=== PATIENT | male | born 1985 | race Caucasian/White ===

== ENCOUNTER 2022-05-04 10:26 | Day surgery (SDC) | payer OTHER ==
[~2022-05-04] VITALS: Ht 172.7 cm; Wt 90.7 kg
[2022-05-04] MEDS ORDERED: fentaNYL citrate 0.05 MG/ML VIAL ONE (11:07)
[2022-05-04] MEDS ORDERED: MIDAZOLAM 2 MG/2 ML VIAL ONE (11:07)
[2022-05-04] MEDS ORDERED: diphenhydrAMINE 50 MG/ML VIAL ONE (11:07)
[2022-05-04] MEDS ORDERED: fentaNYL citrate 0.05 MG/ML VIAL IVP ONE (12:20)
[2022-05-04] MEDS ORDERED: diphenhydrAMINE 50 MG/ML VIAL IVP ONE (12:20)
[2022-05-04] MEDS ORDERED: MIDAZOLAM 2 MG/2 ML VIAL IVP ONE (12:20)
== END 2022-05-04 12:31 | disposition home or self-care (01) ==
LOC: MOR 10:26 → MMU 10:27 → MOR 12:31
PROVIDERS: ATTEND Internal Medicine Gastroenterology
DX: R10.13 Epigastric pain (principal); K21.9 Gastro-esophageal reflux disease without esophagitis; K29.70 Gastritis, unspecified, without bleeding; R74.01 Elevation of levels of liver transaminase levels; K59.00 Constipation, unspecified; E66.01 Morbid (severe) obesity due to excess calories; Z68.30 Body mass index [BMI] 30.0-30.9, adult
CPT/HCPCS: 43239; J1200; J2250; J3010